=== PATIENT | female | born 1980 | race African-American/Black ===

== ENCOUNTER 2018-09-05 17:09 | Emergency (ER) | payer MEDICAID ==
[~2018-09-05] VITALS: Ht 157.5 cm; Wt 97.0 kg
[2018-09-05 18:51] VITALS: BP 140/69
[2018-09-05] MEDS ORDERED: MAPAP (19:04)
[2018-09-05] MEDS ORDERED: TOPI100T37 MT (19:04)
[2018-09-05] MEDS ORDERED: VITAMIN D (19:04)
[2018-09-05] MEDS ORDERED: ALBU18HF2 IH (19:04)
[2018-09-05] MEDS ORDERED: FAMO20TA8 MT (19:04)
[2018-09-05] MEDS ORDERED: FERR300S PO (19:04)
== END 2018-09-06 02:23 | disposition home or self-care (01) ==
LOC: ER 18:45
DX: S93.402A Sprain of unspecified ligament of left ankle, initial encounter (principal); L25.0 Unspecified contact dermatitis due to cosmetics; J45.909 Unspecified asthma, uncomplicated; I10 Essential (primary) hypertension; D64.9 Anemia, unspecified; F20.9 Schizophrenia, unspecified; K21.9 Gastro-esophageal reflux disease without esophagitis; Z88.2 Allergy status to sulfonamides; Z79.899 Other long term (current) drug therapy; W18.39XA Other fall on same level, initial encounter; Y93.89 Activity, other specified; Y92.89 Other specified places as the place of occurrence of the external cause; Y99.8 Other external cause status
CPT/HCPCS: 73610; 73630; 99283